=== PATIENT | male | born 1960 | race Two or more races ===

== ENCOUNTER 2019-10-05 18:27 | Inpatient (IN) | payer MEDICAID ==
[~2019-10-05] VITALS: Ht 170.2 cm; Wt 84.1 kg
[2019-10-05] MEDS ORDERED: KETOROLAC TROMETHAMINE INJ 60 MG/2 ML VIAL IM ONE (19:00)
[2019-10-05] MEDS ORDERED: KETOROLAC TROMETHAMINE INJ 30 MG/ML VIAL ONE (19:07)
--- NOTE | 2019-10-05 19:10 | NUR ---
BIBS FOR C/O LOWER BAD PAIN SINCE 499. - HEMATURIA OR DYSURIA. -N/V/D
[2019-10-05 19:11] LABS: BASOPHILS # (AUTO) 0.1 /CMM (0.0-0.2); EOSINOPHILS % (AUTO) 4.4 % (0.0-6.0); HEMATOCRIT 45 % (39-51); LYMPHOCYTES # (AUTO) 2.4 /CMM (0.8-4.8); LYMPHOCYTES % (AUTO) 29.9 % (20.0-44.0); MEAN CORPUSCULAR HGB CONC 33 g/dl (31.0-36.0); MEAN CORPUSCULAR VOLUME 88 fL (80-96); MONOCYTES # (AUTO) 0.5 /CMM (0.1-1.30); MONOCYTES % (AUTO) 6.2 % (2.0-12.0); NEUTROPHILS # (AUTO) 4.7 /CMM (1.8-8.9); NEUTROPHILS % (AUTO) 58.5 % (43.0-81.0); PLATELET COUNT (AUTO) 349 /CMM (150-450); RED BLOOD CELL COUNT(AUTO) 5.19 MIL/uL (4.5-6.0)
[2019-10-05 19:29] LABS: CALCIUM, SERUM 8.8 mg/dL (8.5-10.1); CREATININE 1.1 mg/dL (0.6-1.3); POTASSIUM 4.3 mmol/L (3.5-5.1)
[2019-10-05 19:56] LABS: BILIRUBIN,TOTAL 0.7 mg/dL (0.2-1.0); TOTAL PROTEIN, SERUM 7.8 g/dL (6.4-8.2)
[2019-10-05 20:09] LABS: ALBUMIN 3.8 g/dL (3.4-5.0); BILIRUBIN,DIRECT 0.2 mg/dL (0.0-0.2)
[2019-10-05 20:26] LABS: APPEARANCE,URINE CLEAR (CLEAR); BILIRUBIN,URINE NEGATIVE (NEGATIVE); BLOOD, URINE NEGATIVE Ery/uL (NEGATIVE); COLOR,URINE YELLOW (YELLOW); KETONES,URINE NEGATIVE (NEGATIVE); LEUKOCYTE ESTERASE ,URINE NEGATIVE (NEGATIVE); NITRITE, URINE NEGATIVE (NEGATIVE); PROTEIN,URINE 30 mg/dl (NEGATIVE); UGLUCOSE NEGATIVE (NEGATIVE); UROBILINOGEN,URINE 0.2 EU/dL (0.2)
[2019-10-05 20:37] LABS: BACTERIA,URINE Rare /HPF (None Seen); RBC,URINE NONE SEEN /HPF (0-2); TRIPLE PHOSPHATE CRYSTAL,UR Few /HPF (None Seen); WBC,URINE NONE SEEN /HPF (0-3)
--- NOTE | 2019-10-05 20:38 | NUR ---
PT LEFT FOR CT
[2019-10-05] MEDS ORDERED: MORPHINE SULFATE INJ 4 MG/ML DISP.SYRIN ONE (20:55)
[2019-10-05] MEDS ORDERED: ONDANSETRON 4 MG TAB.RAPDIS ONE (20:55)
[2019-10-05] MEDS ORDERED: MORPHINE SULFATE INJ 2 MG/ML DISP.SYRIN IM ONE (21:00)
[2019-10-05] MEDS ORDERED: ONDANSETRON 4 MG TAB.RAPDIS SL ONE (21:00)
--- NOTE | 2019-10-05 21:20 | NUR ---
CALLED SURGEON CANCER RESEARCHER DR GAVIN, LEFT VOICEMAIL
--- NOTE | 2019-10-05 22:09 | NUR ---
RAC 18G PIV STARTED W/ GOOD BLOOD RETURN
[2019-10-05] MEDS ORDERED: hydrALAZINE HCL IV 20 MG VIAL ONE (22:25)
[2019-10-05] MEDS ORDERED: ONDANSETRON HCL/PF 4 MG/2 ML VIAL IVP PRN (22:30)
[2019-10-05] MEDS ORDERED: MAGNESIUM HYDROXIDE 30 ML UDC PO PRN (22:30)
[2019-10-05] MEDS ORDERED: ZOLPIDEM TARTRATE 5 MG TABLET PO PRN (22:30)
[2019-10-05] MEDS ORDERED: hydrALAZINE HCL IV 20 MG VIAL IV PRN (22:30)
[2019-10-05] MEDS ORDERED: MORPHINE SULFATE INJ 4 MG/ML DISP.SYRIN IV PRN (22:30)
[2019-10-05] MEDS ORDERED: ACETAMINOPHEN 325 MG TABLET PO PRN (22:30)
[2019-10-05] MEDS ORDERED: MAG HYDROX/AL HYDROX/SIMETH 30 ML UDC PO PRN (22:30)
[2019-10-05] MEDS ORDERED: HYDROCODONE/APAP 5/325MG 1 EACH TABLET PO PRN (22:30)
[2019-10-05] MEDS ORDERED: Z GUARD REMEDY 2 OZ OINT TP PRN (22:30)
--- NOTE | 2019-10-05 22:37 | NUR ---
REPORT GIVEN TO NIEVES ON THIRD FLOOR. PER PT, HE IS NOT TAKING ANY MEDICATION AT HOME.
--- NOTE | 2019-10-05 22:45 | NUR ---
PT WAS TRANSFERRED TO 304 IN STABLE CONDITION.
[2019-10-05 23:00] VITALS: BP 164/82
--- NOTE | 2019-10-05 23:00 | NUR ---
MS/RN ADMITTING NOTES: RECEIVED PATIENT IN STABLE CONDITION. ARRIVED TO THE UNIT VIA GURNEY ACCOMPANIED BY ER STAFF. A/OX4. VERBALLY RESPONSIVE AND JORGE TO MAKE NEEDS KNOWN. VITAL SIGNS TAKEN. BP OF 164/82. HR 68, RR:18, AND TEMP OF 97.8. ON ROOM AIR, NO SOB NOTED. NO S/S OF DISTRESS NOTED. IV ACCESS LOCATED ON THE RIGHT AC #18G. PATENT, INTACT AND FLUSHING WELL. SKIN ASSESSMENT DONE, SKIN IS INTACT. ABLE TO AMBULATE INDEPENDENTLY. CONTINENT AND BRP. ORIENTED PT TO THE UNIT AND STAFF. INFORMED ABOUT CURRENT PLAN OF CARE. ON NPO STATUS FOR NOW. SAFETY MEASURES IN PLACE. BED IN LOW, LOCKED POSITION WITH SR UPX2. CALL LIGHT WITHIN REACH AND WILL CONTINUE TO MONITOR ACCORDINGLY.
[2019-10-06] MEDS: IV D5/0.45 NACL 1,000 ML IV PRN ×2 (00:05→09:55)
--- NOTE | 2019-10-06 06:25 | NUR ---
MS/RN CLOSING NOTES: PATIENT IS STABLE. NO SIGNIFICANT CHANGES IN CONDITION. RESTING IN BED, EASY TO AROUSE. A/OX4. VERBALLY RESPONSIVE AND ABLE TO MAKE NEEDS KNOWN. IV ACCESS ON RIGHT AC #18G INTACT AND PATENT WITH D5 1/2 NS RUNNING AT 125ML/HR. NO COMPLAINS OF PAIN AT THIS TIME. NO SOB NOTED, NO S/S OF ACUTE DISTRESS NOTED. SAFETY MEASURES KEPT IN PLACE. BED IN LOW, LOCKED POSITION WITH SR UP X2. KEPT PT WARM AND COMFORTABLE AT ALL TIMES. ALL NEEDS MET AND PROVIDED. WILL ENDORSE TO DAYSHIFT NURSE FOR [facility].
[2019-10-06 06:35] LABS: BASOPHILS # (AUTO) 0.1 /CMM (0.0-0.2); EOSINOPHILS % (AUTO) 4.2 % (0.0-6.0); HEMATOCRIT 44 % (39-51); HEMOGLOBIN 14.6 g/dL (13.5-17.5); LYMPHOCYTES # (AUTO) 1.6 /CMM (0.8-4.8); LYMPHOCYTES % (AUTO) 19.5 % (20.0-44.0); MEAN CORPUSCULAR HGB CONC 33 g/dl (31.0-36.0); MEAN CORPUSCULAR VOLUME 88 fL (80-96); MONOCYTES # (AUTO) 0.7 /CMM (0.1-1.30); MONOCYTES % (AUTO) 8.1 % (2.0-12.0); NEUTROPHILS # (AUTO) 5.6 /CMM (1.8-8.9); NEUTROPHILS % (AUTO) 67.2 % (43.0-81.0); PLATELET COUNT (AUTO) 304 /CMM (150-450); RED BLOOD CELL COUNT(AUTO) 5.03 MIL/uL (4.5-6.0); WHITE BLOOD COUNT (AUTO) 8.3 K/uL (4.3-11.0)
[2019-10-06 06:55] LABS: CALCIUM, SERUM 8.1 mg/dL (8.5-10.1); CREATININE 1.1 mg/dL (0.6-1.3); PHOSPHORUS 3.6 mg/dL (2.5-4.9); POTASSIUM 3.8 mmol/L (3.5-5.1)
[2019-10-06 08:00] VITALS: BP 145/94
--- NOTE | 2019-10-06 08:00 | NUR ---
m/s nurse ortho: initial assessment received pt in bed awake, a/ox4. remains npo. for surgical consult. continue on iv fluids, infusing well. no distress noted. instructed to call for assistance.
--- NOTE | 2019-10-06 10:00 | NUR ---
m/s tape keller operator: notes resting comfortable in bed. no distress noted. remains npo. will continue to monitor.
--- NOTE | 2019-10-06 11:30 | NUR ---
m/s chemical laboratory scientist: md visit seen and examined by dr. najera with verbal order to start him on clear liquid diet, advance as tolerated. pt verbalized understanding. for d'c planning tonight if he tolerates diet.
[2019-10-06] MEDS ORDERED: AMLO5TAB4 PO (12:27)
--- NOTE | 2019-10-06 12:30 | NUR ---
m/s framework developer: notes pt tolerated clear liquid diet. denies n/v or abdominal discomfort. diet advance to full. pudding, apple sauce, and juices provided. instructed to call for assistance.
--- NOTE | 2019-10-06 14:28 | NUR ---
m/s technologist development: notes pt tolerated pudding, apple sauce, and drinks for full liquid. denies n/v or abdominal discomfort. seen by debbie (screenplay writer, surgeon) and okay to go home today and to f/u with dr. rice for future surgery as instructed. pt verbalized understanding.
--- NOTE | 2019-10-06 15:30 | NUR ---
m/s flue lining dipper: notes ordered early dinner for pt. pt still asymptomatic at this time. instructed to call for assistance.
--- NOTE | 2019-10-06 17:25 | NUR ---
m/s health social work professor: notes pt tolerated early dinner, stated, "i felt good." denies n/v or any discomfort. discharge instructions given [facility]. pt verbalized understanding. h/l removed with tip intact. sister to pick him up as stated. instructed to call for assistance.
--- NOTE | 2019-10-06 17:50 | NUR ---
m/s legal researcher: discharged discharged home accompanied by nephew via private car in stable condition with all valuables and d'c papers.
== END 2019-10-06 17:45 | disposition home or self-care (01) | DRG 254 ==
LOC: ER 18:33 → MED 22:07
PROVIDERS: ADMIT Hospitalist; ATTEND Nurse Practitioner Acute Care
DX: K40.30 Unilateral inguinal hernia, with obstruction, without gangrene, not specified as recurrent (principal); E66.3 Overweight; I10 Essential (primary) hypertension; M79.3 Panniculitis, unspecified; R73.9 Hyperglycemia, unspecified; Z68.29 Body mass index [BMI] 29.0-29.9, adult; R74.0 Nonspecific elevation of levels of transaminase and lactic acid dehydrogenase [LDH]; Z87.442 Personal history of urinary calculi
CPT/HCPCS: 36415; 80048-TC; 80061-TC; 80076-TC; 81000-TC; 83605-TC; 83690-TC; 83735-TC; 84100-TC; 85025-TC; 87081-TC; 87086-TC; G0378; J0360; J1885; J2270; J3490; Q0162

== ENCOUNTER 2024-04-24 10:33 | Inpatient (IN) | payer MEDICAID ==
[~2024-04-24] VITALS: Ht 170.2 cm; Wt 75.7 kg
[~2024-04-24 10:33] MED LIST: AMLO5TAB4 PO
[2024-04-24 11:10] LABS: BASOPHILS # (AUTO) 0.1 K/uL (0.0-0.2); BASOPHILS % (AUTO) 1.1 % (0.0-2.0); EOSINOPHILS # (AUTO) 0.2 K/uL (0.0-0.7); EOSINOPHILS % (AUTO) 1.8 % (0.0-6.0); HEMATOCRIT 40 % (39-51); HEMOGLOBIN 12.9 g/dL (13.5-17.5); LYMPHOCYTES # (AUTO) 1.4 K/uL (0.8-4.8); LYMPHOCYTES % (AUTO) 14.6 % (20.0-44.0); MEAN CORPUSCULAR HEMOGLOBIN 24 PG (26.0-33.0); MEAN CORPUSCULAR HGB CONC 32 g/dl (31.0-36.0); MEAN CORPUSCULAR VOLUME 75 fL (80-96); MONOCYTES # (AUTO) 0.6 K/uL (0.1-1.30); MONOCYTES % (AUTO) 6.2 % (2.0-12.0); NEUTROPHILS # (AUTO) 7.5 K/uL (1.8-8.9); NEUTROPHILS % (AUTO) 76.3 % (43.0-81.0); PLATELET COUNT (AUTO) 509 K/uL (150-450); RED BLOOD CELL COUNT(AUTO) 5.35 MIL/uL (4.5-6.0); RED CELL DISTRIBUTION WIDTH 15.9 % (11.5-15.0); WHITE BLOOD COUNT (AUTO) 9.8 K/uL (4.3-11.0)
[2024-04-24 11:25] LABS: CARBON DIOXIDE 22 mmol/L (21-32); CHLORIDE 96 mmol/L (98-107); CREATININE 1.9 mg/dL (0.6-1.3); GLUCOSE 222 mg/dL (74-106); POTASSIUM 4.5 mmol/L (3.5-5.1); SODIUM SERUM 128 mmol/L (136-145); UREA NITROGEN, BLOOD 27 mg/dL (7-18)
[2024-04-24 12:13] LABS: NEUTROPHILS % (MANUAL) 76 (42-76)
[2024-04-24] MEDS ORDERED: ATOR40TA PO (12:13)
[2024-04-24] MEDS ORDERED: OMEG1CAP74 PO (12:13)
[2024-04-24] MEDS ORDERED: LISI2.5T2 PO (12:13)
[2024-04-24] MEDS ORDERED: AMLO5TAB4 PO (12:13)
[2024-04-24] MEDS ORDERED: CHOL200059 PO (12:13)
[2024-04-24] MEDS ORDERED: METF-442 PO (12:13)
[2024-04-24] MEDS ORDERED: CHLO25TA2 PO (12:13)
[2024-04-24] MEDS ORDERED: KERENDIA PO (12:13)
[2024-04-24] MEDS ORDERED: EMPA25TA PO (12:13)
[2024-04-24 12:14] LABS: ANISOCYTOSIS 1+; BASOPHILS % (MANUAL) 0 % (0.0-2.0); EOSINOPHILS % (MANUAL) 1 % (0-4); HYPOCHROMASIA 1+; LYMPHOCYTES % (MANUAL) 18 % (16-48); MONOCYTES % (MANUAL) 5 % (0-11.0); PLATELET ESTIMATE ADEQUATE; STOMATOCYTES 1+
[2024-04-24 12:23] LABS: APPEARANCE,URINE Clear (CLEAR); BILIRUBIN,URINE SMALL (NEGATIVE); BLOOD, URINE Negative Ery/uL (NEGATIVE); COLOR,URINE YELLOW (YELLOW); KETONES,URINE 15 mg/dL (NEGATIVE); LEUKOCYTE ESTERASE ,URINE Negative (NEGATIVE); NITRITE, URINE Negative (NEGATIVE); PH,URINE 5.5 (5.0-8.0); PROTEIN,URINE 30 mg/dl (NEGATIVE); UGLUCOSE >=1000 mg/dL (NEGATIVE); UROBILINOGEN,URINE 0.2 EU/dL (0.2)
[2024-04-24] MEDS: IV NS 0.9% 1,000 ML BAG IV ONE (12:27)
[2024-04-24 12:42] LABS: ADD URINE CULTURE NO; BACTERIA,URINE Few /HPF (None Seen); RBC,URINE 0-2 /HPF (0-2); SQUAMOUS EPITHELIAL CELL,UR Few /HPF (None Seen); WBC,URINE 0-2 /HPF (0-3)
[2024-04-24] MEDS ORDERED: NITROGLYCERIN 0.4 MG/TAB BOTTLE SL PRN (14:00)
[2024-04-24] MEDS ORDERED: MORPHINE SULFATE INJ 2 MG/ML DISP.SYRIN IV PRN (14:00)
[2024-04-24] MEDS ORDERED: MAG HYDROX/AL HYDROX/SIMETH 30 ML UDC PO PRN (14:00)
[2024-04-24] MEDS ORDERED: HYDROCODONE/APAP 5/325MG TABLET PO PRN (14:00)
[2024-04-24] MEDS ORDERED: MAGNESIUM HYDROXIDE 30 ML UDC PO PRN (14:00)
[2024-04-24] MEDS ORDERED: ACETAMINOPHEN 325 MG TABLET PO PRN (14:00)
[2024-04-24] MEDS ORDERED: ONDANSETRON HCL/PF 4 MG/2 ML VIAL IVP PRN (14:00)
[2024-04-24] MEDS ORDERED: METFORMIN 500 MG TABLET ONE (17:58)
[2024-04-24] MEDS ORDERED: ASPIRIN 81 MG TAB.CHEW ONE (17:59)
[2024-04-24] MEDS: ASPIRIN EC 81 MG TABLET.DR PO SCH (18:02)
[2024-04-24] MEDS: METFORMIN 500 MG TABLET PO SCH (18:02)
[2024-04-24 20:00] VITALS: BP 134/78; TEMP 98.2; O2SAT 96
[2024-04-25] VITALS (8 sets, daily range): BP systolic 118–134; BP diastolic 72–83; TEMP 97.6–98.3; O2SAT 95–99
[2024-04-25 07:02] LABS: BASOPHILS # (AUTO) 0.1 K/uL (0.0-0.2); BASOPHILS % (AUTO) 1.1 % (0.0-2.0); EOSINOPHILS # (AUTO) 0.3 K/uL (0.0-0.7); EOSINOPHILS % (AUTO) 2.9 % (0.0-6.0); HEMATOCRIT 37 % (39-51); HEMOGLOBIN 12.2 g/dL (13.5-17.5); LYMPHOCYTES # (AUTO) 1.7 K/uL (0.8-4.8); LYMPHOCYTES % (AUTO) 15.9 % (20.0-44.0); MEAN CORPUSCULAR HEMOGLOBIN 25 PG (26.0-33.0); MEAN CORPUSCULAR HGB CONC 33 g/dl (31.0-36.0); MEAN CORPUSCULAR VOLUME 75 fL (80-96); MONOCYTES # (AUTO) 0.8 K/uL (0.1-1.30); MONOCYTES % (AUTO) 7.4 % (2.0-12.0); NEUTROPHILS % (AUTO) 72.7 % (43.0-81.0); PLATELET COUNT (AUTO) 483 K/uL (150-450); RED BLOOD CELL COUNT(AUTO) 4.97 MIL/uL (4.5-6.0); RED CELL DISTRIBUTION WIDTH 16.3 % (11.5-15.0)
[2024-04-25 07:55] LABS: CALCIUM, SERUM 8.2 mg/dL (8.5-10.1); CREATININE 1.4 mg/dL (0.6-1.3); MAGNESIUM 2.3 mg/dL (1.8-2.4); PHOSPHORUS 3.5 mg/dL (2.5-4.9); POTASSIUM 4.6 mmol/L (3.5-5.1)
[2024-04-25] MEDS: IV NS 0.9% 1,000 ML IV PRN (08:28)
[2024-04-25] MEDS: LISINOPRIL (5MG) 5 MG TABLET PO SCH (08:42)
[2024-04-25] MEDS: ATORVASTATIN 40 MG TABLET PO SCH (08:43)
[2024-04-25] MEDS: PANTOPRAZOLE 40 MG TABLET.DR PO SCH (08:43)
[2024-04-25 08:51] LABS: EOSINOPHILS % (MANUAL) 3 % (0-4); HYPOCHROMASIA 2+; LYMPHOCYTES % (MANUAL) 15 % (16-48); MONOCYTES % (MANUAL) 9 % (0-11.0); NEUTROPHILS % (MANUAL) 73 (42-76); PLATELET ESTIMATE INCREASED
[2024-04-25 08:52] LABS: ANISOCYTOSIS 1+; STOMATOCYTES 1+
[2024-04-25] MEDS ORDERED: AMLODIPINE BESYLATE 5 MG TABLET PO SCH (09:00)
[2024-04-25] MEDS: METOPROLOL TARTRATE 50 MG TABLET PO SCH (13:20)
[2024-04-26] VITALS (7 sets, daily range): BP systolic 107–131; BP diastolic 72–89; TEMP 97.7–107; O2SAT 95–100
[2024-04-26 07:05] LABS: BASOPHILS # (AUTO) 0.1 K/uL (0.0-0.2); BASOPHILS % (AUTO) 1.3 % (0.0-2.0); EOSINOPHILS # (AUTO) 0.4 K/uL (0.0-0.7); EOSINOPHILS % (AUTO) 4.4 % (0.0-6.0); HEMATOCRIT 36 % (39-51); HEMOGLOBIN 11.5 g/dL (13.5-17.5); LYMPHOCYTES # (AUTO) 2.2 K/uL (0.8-4.8); LYMPHOCYTES % (AUTO) 24.9 % (20.0-44.0); MEAN CORPUSCULAR HEMOGLOBIN 24 PG (26.0-33.0); MEAN CORPUSCULAR HGB CONC 32 g/dl (31.0-36.0); MEAN CORPUSCULAR VOLUME 75 fL (80-96); MONOCYTES # (AUTO) 0.7 K/uL (0.1-1.30); MONOCYTES % (AUTO) 7.5 % (2.0-12.0); NEUTROPHILS # (AUTO) 5.5 K/uL (1.8-8.9); NEUTROPHILS % (AUTO) 61.9 % (43.0-81.0); PLATELET COUNT (AUTO) 464 K/uL (150-450); RED BLOOD CELL COUNT(AUTO) 4.72 MIL/uL (4.5-6.0); RED CELL DISTRIBUTION WIDTH 16.1 % (11.5-15.0); WHITE BLOOD COUNT (AUTO) 8.9 K/uL (4.3-11.0)
[2024-04-26 07:37] LABS: ALBUMIN 2.6 g/dL (3.4-5.0); BILIRUBIN,TOTAL 0.4 mg/dL (0.2-1.0); CALCIUM, SERUM 8.4 mg/dL (8.5-10.1); CREATININE 1.3 mg/dL (0.6-1.3); MAGNESIUM 2.3 mg/dL (1.8-2.4); PHOSPHORUS 2.6 mg/dL (2.5-4.9); POTASSIUM 4.6 mmol/L (3.5-5.1); TOTAL PROTEIN, SERUM 6.7 g/dL (6.4-8.2)
[2024-04-26 10:55] LABS: ANISOCYTOSIS 1+; EOSINOPHILS % (MANUAL) 3 % (0-4); HYPOCHROMASIA 1+; LYMPHOCYTES % (MANUAL) 28 % (16-48); MONOCYTES % (MANUAL) 7 % (0-11.0); NEUTROPHILS % (MANUAL) 62 (42-76); PLATELET ESTIMATE ADEQUATE
[2024-04-26 10:56] LABS: STOMATOCYTES 1+
[2024-04-26] MEDS ORDERED: DEXTROSE 50%-WATER 50 ML DISP.SYRIN IV PRN (23:30)
[2024-04-27] VITALS: BP 122/75; TEMP 98.2; O2SAT 96
[2024-04-27 00:05] VITALS: BP 122/75; TEMP 98.2; O2SAT 98
[2024-04-27 04:00] VITALS: BP 116/79; TEMP 98.4; O2SAT 99
[2024-04-27 04:05] VITALS: BP 116/79; TEMP 98.4; O2SAT 99
[2024-04-27] MEDS: BLOOD SUGAR DIAGNOSTIC 1 EACH STRIP IN SCH (07:03)
[2024-04-27 07:30] VITALS: BP 120/83; TEMP 98.5; O2SAT 99
[2024-04-27] MEDS: INSULIN REGULAR, HUMAN 100 UNIT/ML 3 ML VIAL SQ PRN (11:17)
[2024-04-27] MEDS ORDERED: ASPI-1420 PO (11:35)
[2024-04-27] MEDS ORDERED: IV NS 0.9% 250 ML IV ONE (14:13)
[2024-04-27] MEDS ORDERED: IOHEXOL-350 100 ML VIAL IV ONE (14:13)
[2024-04-27] MEDS ORDERED: CT SWABBABLE VALVE TRANS SET 1 EA INFUS.SET MC ONE (14:13)
[2024-04-27] MEDS: METOPROLOL TARTRATE INJ 5 MG/5 ML AMPUL IVP PRN (14:25)
[2024-04-27] MEDS ORDERED: METOPROLOL TARTRATE INJ 5 MG/5 ML AMPUL ONE ×2 (14:29→14:36)
[2024-04-27] MEDS ORDERED: NITROGLYCERIN 0.4 MG/TAB BOTTLE ONE (14:29)
[2024-04-27] MEDS: NITROGLYCERIN 0.4 MG/TAB BOTTLE SL ONE (14:40)
[2024-04-27 17:55] VITALS: BP 121/75
== END 2024-04-27 18:00 | disposition home or self-care (01) | DRG 198 ==
LOC: ER 11:00 → TELE 18:08 → MED 04-27 13:48
PROVIDERS: ATTEND Nurse Practitioner Acute Care
DX: I25.10 Atherosclerotic heart disease of native coronary artery without angina pectoris (principal); N17.9 Acute kidney failure, unspecified; E87.1 Hypo-osmolality and hyponatremia; N18.9 Chronic kidney disease, unspecified; Z79.84 Long term (current) use of oral hypoglycemic drugs; E86.0 Dehydration; I12.9 Hypertensive chronic kidney disease with stage 1 through stage 4 chronic kidney disease, or unspecified chronic kidney disease; E78.5 Hyperlipidemia, unspecified; E11.22 Type 2 diabetes mellitus with diabetic chronic kidney disease; Z80.1 Family history of malignant neoplasm of trachea, bronchus and lung; Z79.899 Other long term (current) drug therapy
CPT/HCPCS: 36415; 71045-TC; 75574; 80048-TC; 80053-TC; 81001; 82962-TC; 83735-TC; 84100-TC; 84484-TC; 85025-TC; 93307-TC; A4223; G0378; J1815; J3490; J7030; J7050; Q9967